=== PATIENT | male | born 1995 | race Caucasian/White ===

== ENCOUNTER 2017-07-26 13:03 | Emergency (ER) | payer SELFPAY ==
--- NOTE | 2017-07-26 14:39 | RAD ---
HISTORY: Right ankle pain COMPARISONS: None VIEWS: 3, Frontal, lateral, and oblique views of the right ankle FINDINGS: BONE DENSITY: Normal. BONES: There is an oblique minimally displaced fracture of the distal right fibula with articular extension. The tibiofibular interval is normal. JOINTS: There is no arthropathy. ALIGNMENT: There is no dislocation. SOFT TISSUES: Unremarkable. OTHER FINDINGS: None. IMPRESSION: OBLIQUE MINIMALLY DISPLACED FRACTURE OF THE DISTAL RIGHT FIBULA
--- NOTE | 2017-07-26 15:05 | UC ---
Lower Extremity/Ankle HPI - HPI Summary HPI Summary: 21 y/o male presents to the urgent care c/o RT ankle pain s/p fall on black ice on Wednesday night 07/24/2017. Pt reports he twisted his RT ankle and then fell on top of it. He ice it and stayed home w/o putting any weight on it. This morning he was lipping but pain increased. Pain is 8/10 sharp associated w/ swelling on the lateral side. Pt denies numbness or tingling over the RT foot, SOB, calf pain, chest pain, abdominal pain N/V/D - History of Current Complaint Chief Complaint: UCLowerExtremity Stated Complaint: ANKLE INJURY Time Seen by Provider: 07/26/17 14:57 Hx Obtained From: Patient Onset/Duration: Sudden Onset, Lasting Days - 2 days, Still Present, Worse Since - this morning Severity Initially: Moderate Severity Currently: Moderate Pain Intensity: 8 Pain Scale Used: 0-10 Numeric Aggravating Factor(s): Standing, Ambulation Alleviating Factor(s): Rest, Ice Able to Bear Weight: No - Risk Factors Gout Risk Factors: Negative DVT Risk Factors: Negative Septic Arthritis Risk Factor: Negative - Allergies/Home Medications Allergies/Adverse Reactions: Allergies Allergy/AdvReac Type Severity Reaction Status Date / Time No Known Allergies Allergy Verified 07/26/17 13:50 PMH/Surg Hx/FS Hx/Imm Hx Previously Healthy: Yes - Pt denies PMHX - Surgical History Surgical History: None Surgery Procedure, Year, and Place: denies - Family History Known Family History: Positive: Diabetes - Social History Occupation: Student Lives: With Family Alcohol Use: Occasionally Substance Use Type: Marijuana Smoking Status (MU): Never Smoked Tobacco - Immunization History Vaccination Up to Date: Yes Review of Systems Constitutional: Negative Skin: Negative Eyes: Negative ENT: Negative Respiratory: Negative Cardiovascular: Negative Gastrointestinal: Negative Genitourinary: Negative Motor: Negative Neurovascular: Negative Musculoskeletal: Decreased ROM - RT ankle s/p fall, Other: - RT ankle pain and swelling s/p fall Neurological: Negative Psychological: Negative Is Patient Immunocompromised?: No All Other Systems Reviewed And Are Negative: Yes Physical Exam Triage Information Reviewed: Yes Vital Signs: Initial Vital Signs Temp 98.5 F 07/26/17 13:44 Pulse 73 07/26/17 13:44 Resp 16 02/12/18 13:44 BP 118/74 07/26/17 13:44 Pulse Ox 99 07/26/17 13:44 - Additional Comments Vital Signs Reviewed: Yes General: well developed, well nourished male, sitting in the examining table w/ o any apparent distress Eyes: Positive: Conjunctiva Clear - PERRLA, EOMI, ENT: Positive: Normal ENT inspection, Hearing grossly normal, Pharynx normal, TMs normal Neck: Positive: Supple, Nontender, No Lymphadenopathy Respiratory: Positive: Chest non-tender, Lungs clear, Normal breath sounds, No respiratory distress Cardiovascular: Positive: RRR, No Murmur, Pulses Normal, Brisk Capillary Refill Abdomen Description: Positive: Nontender, No Organomegaly, Soft. Negative: CVA Tenderness (R), CVA Tenderness (L) Bowel Sounds: Positive: Present Musculoskeletal: - Ankle: Pt is unable to bear weight and ambulate w/ limping. The R ankle is without obvious asymmetry or deformity when compared to the L ankle. Decreased ROM due to pain. Moderate swelling at the lateral malleolus, with tenderness to palpation. Mild ecchymosis or bruising observed on lateral malleolus. No Tenderness to palpation over the medial malleolus , no swelling observed. Talar tilt test is negative for ligament laxity to valgus or varus stress. anterior drawer test unable to perform due to pain. . Peroneal nerve is intact with strong eversion and plantar flexion. Positive sensation over the Rt foot and Rt ankle, positive pulses, capillary refill intact Neurological Exam: Normal Psychological Exam: Normal Skin: warm and dry Lower Extremity Course/Dx - Course Course Of Treatment: 21 y/o male presents to the urgent care c/o RT ankle pain s /p fall on black ice on Wednesday night 07/24/2017. Pt reports he twisted his RT ankle and then fell on top of it. He ice it and stayed home w/o putting any weight on it. This morning he was lipping but pain increased. Pain is 8/10 sharp associated w/ swelling on the lateral side. Pt denies numbness or tingling over the RT foot, SOB, calf pain, chest pain, abdominal pain N/V/D. Hx obtained. Rt ankle X-ray ordered, Impression: Minimally displaced fracture of the RT distal fibula. I called DR Maynard Orthopedic infusion nurse and he was in the OR on an urgent case. I counsulted w/ Dr Nielson and he recomended stir-up splin and crutches to avoid weight bearing an f/u wih DR maynard in 1 day. Pt RT ankle immobilized with stir-up splint. Neurovacular intact after splinting. Pt given crutches to avoid weight bearing, Pt given Ibuprofen PO to decrease for pain at the clinic . Pt Rx Naproxen PO to decrease pain and swelling. Pt advised RICE, take Naproxen PO for pain and to f/u with Dr Maynard as soon as possible for further treatment.Pt understood and agreed and left the clinic ambulating w/ the help of crutches. - Differential Dx/Diagnosis Differential Diagnosis/HQI/PQRI: Contusion, Dislocation, Fracture (Closed), Sprain, Strain Provider Diagnoses: 1- Minimally diplaced fracture of the RT distal fibula s/p fall. 2-RT ankle pain s/p fall - Physician Notifications Discussed Patient Care With: Chuck Nielson - Dr Nielson agreed w/ Pt's plan of care. Discharge - Discharge Plan Condition: Stable Disposition: HOME Prescriptions: Naproxen [Naproxen 500 mg] 500 mg PO Q8H PRN #30 tab PRN Reason: Pain Patient Education Materials: Ankle Fracture (ED) Forms: *School Release Referrals: [facility] [place] [facility] [Outside] - 1 Week Jarad Maynard MD [Medical Doctor] - 1 Day Additional Instructions: 1-Please take medications as directed to alleviate pain and swelling. 2-Please apply ice, keep your ankle immobilized with the splint. Avoid weight bearing using the crutches 3- Please f/u with Orthopedic Dr maynard in 1-2 days for further evaluation and treatment.
[2017-07-26] MEDS ORDERED: Ibuprofen TAB* 400 MG PO ONE (15:12)
[2017-07-26 16:08] VITALS: BP 120/70
== END 2017-07-26 15:51 | disposition home or self-care (01) ==
LOC: UCEAST 13:03
DX: S82.831A Other fracture of upper and lower end of right fibula, initial encounter for closed fracture (principal); W00.0XXA Fall on same level due to ice and snow, initial encounter; Y93.9 Activity, unspecified; Y92.9 Unspecified place or not applicable; M25.571 Pain in right ankle and joints of right foot; F12.90 Cannabis use, unspecified, uncomplicated
CPT/HCPCS: 99213; A9270-GY; G0463

== ENCOUNTER → 2017-08-06 11:25 | Day surgery (SDC) | payer MEDICAID ==
[~2017-08-06 11:25] MED LIST: Acetaminophen TAB* 325 MG PO PRN; Buffered Lidocaine 0.9% SYRIN* 5 ML/SYR SYRINGE INTRADERM ONE; Bupivacaine 0.5% SDV PF* 10-30ML VIAL ONE; Dexamethasone IV* 4 MG/ML 1 ML (4 MG) ONE; HYDROmorphone INJ* 1 MG/ML CARPUJECT SYRINGE IV PRN; Ibuprofen TAB* 600 MG PO PRN; Lidocaine 2% PF * 5 ML VIAL ONE; Metoclopramide IV* 5 MG/ML 2 ML VIAL IV PRN; Midazolam* 1 MG/ML 2 ML VIAL (2 MG) ONE; Naloxone* 0.4 MG/ML 1 ML VIAL IV PRN; Ondansetron INJ* 2 MG/ML VIAL ONE; Propofol* 10 MG/ML 20 ML BTL IV PUSH ONE; ceFAZolin 2 GM in 100 MLS NS (*) BAG IVPB ONE; fentaNYL* 50 MCG/ML 2 ML VIAL (100 MCG VIAL) IV PRN; fentaNYL* 50 MCG/ML 2 ML VIAL (100 MCG VIAL) ONE
[2017-08-06 16:48] VITALS: BP 121/75
--- NOTE | 2017-08-07 17:18 | RAD ---
CPT II Codes: 6045F INDICATION: Fracture distal fibula traumatic right ankle. Fluoroscopic services provided for referring physician. 39 seconds of fluoroscopy time was used. 8 spot images demonstrates internal fixation of the fibula with a plate and screws. IMPRESSION: Internal fixation distal fibula.
--- NOTE | 2017-08-08 22:50 | OP ---
DATE OF OPERATION: 08/06/17 [facility] DATE OF : 89 SURGEON: Julio Mcintyre MD OIL FIELD PUMPER: EDMOND Bennett. A physician assistant program director was required for the length of the procedure for help with positioning, retraction, instrumentation and closure. ANESTHESIOLOGIST: Erin Adrian MD ANESTHESIA: General anesthesia, regional anesthesia with a popliteal and sciatic nerve block, and local anesthesia, 10 cc of 0.5% Marcaine without epinephrine. PRE-OP DIAGNOSIS: Right ankle lateral malleolus fracture, displaced. POST-OP DIAGNOSIS: Right ankle lateral malleolus fracture, displaced. OPERATIVE PROCEDURE: Open reduction internal fixation, right ankle lateral malleolus. 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 The patient went to [facility] and was eventually referred to my office. X-rays demonstrated that the patient had a displaced oblique or spiral fracture of the distal fibula or lateral malleolus. It was a Mills B, SER type fracture. [facility] x-rays demonstrated 2.5 mm of displacement at the fracture site. Weightbearing views showed as much as 5.5 mm of displacement. Weightbearing views were obtained in clinic. We discussed nonoperative versus operative management and decided on operative management. We discussed risks and potential complications of surgery including bleeding, infection, nerve or blood vessel injury, ankle pain, stiffness, osteoarthritis, need to remove hardware. ANTIBIOTICS: Ancef 2 g IV. IV FLUIDS: 1400 cc crystalloid. COMPLICATIONS: None. SPECIMEN: None. IMPLANTS: A 7-hole one-third tubular plate from [employer]. This had placed through a non-locking and locking 3.5 mm screws, cortical. The patient also had a non- locking 4.0 mm cancellous screw placed in the most distal hole in the plate. There was also present a 3.5 mm fully threaded cortical screw placed in lag technique fashion across the fracture site. ESTIMATED BLOOD LOSS: Minimal. TOURNIQUET TIME: 64 minutes at 300 mmHg. DESCRIPTION OF PROCEDURE: Preoperatively, the patient signed a written consent. Operative extremity was marked in preoperative holding. The patient had a popliteal sciatic nerve block performed by Dr. Adrian. The patient was brought back to the operating room, placed supine on operating room table. The patient was sedated and intubated. Cast saw was used to remove the short leg cast that has been placed in the clinic. Vacuum was used so there was a little to no fiberglass dust created. As expected, the patient only had a [id number] soft tissue swelling and a easy wrinkling of the skin. No skin defect. A right proximal thigh tourniquet was placed. Bone foam was placed under the right lower extremity and blanket bumps were placed under the right hemipelvis. The right lower extremity was prepped with chlorhexidine scrub of the foot and ankle followed by ChloraPrep. Draping. Surgical time-out. Esmarch was applied and tourniquet was elevated to 300 mmHg. Skin incision was made for a lateral approach to the ankle. I continued dissection down to bone. Fracture was identified. Fracture was opened. Irrigation. Some fibrous tissue debrided with rongeur and curette. Bone clamps used to reduce the fracture. I then placed a lag screw. I placed a 3.5 mm fully threaded cortical screw from posterior to anterior across the fracture site using lag technique. Removed bone clamps. It shows a 7-hole plate. I picked appropriate location to place on bone. I contoured the plate appropriately with several bends and some internal rotation added to it. I placed a non-locking screw distally and a non-locking screw proximally. I then obtained x-ray imaging, which showed excellent reduction of the bone at the fracture site and excellent placement of the hardware, specifically the plate. I then filled the plate, proximally and distally. I changed the length of one of the proximal screws and converted it from nonlocking to locking because the purchase was not excellent. The purchase of the remaining nonlocking screws were excellent. I changed the length of my lag screw from 22 mm to 18 mm. I performed an external rotation stress test. It showed no clear space opening. I then performed a cotton test. This likewise showed no clear space opening. I therefore decided a syndesmotic screw was not required. I finished up with my screws through the plate. I took final images, AP mortise and lateral, which showed excellent symmetric mortis, excellent placement of hardware and anatomic reduction at the fracture site. Irrigation. Closure of some deep fascia with Vicryl 2-0 suture, placing figure- of- eight stitches. The plate was entirely covered by this deep fascia. Irrigation. Closure of the subcutaneous tissue with buried simple stitches using Vicryl 3-0 suture. Then closure of the skin with jordi. Xeroform, 4x4 , sterile Webril. Tourniquet was deflated. Non-sterile Webril was then used. We then placed a splint, first a posterior splint and then a sugar tong medial and lateral splint and overwrapped it with an Fabian bandage. The patient was awakened and extubated. DISPOSITION: The patient will be nonweightbearing, right lower extremity using crutches. He will take Keflex for 7 days to prevent an infection and Percocet as needed for pain control. The patient will follow up with me in clinic 10 to 14 days postoperatively for x-rays, wound check, removal of sutures, and placements in either a walking boot or a cast. The patient is also being placed on aspirin for DVT prophylaxis. [id number]/[facility] #: [id number] KIMMY
== END | disposition home or self-care (01) ==
LOC: OR 11:25
PROVIDERS: ATTEND Orthopaedic Surgery
DX: S82.61XA Displaced fracture of lateral malleolus of right fibula, initial encounter for closed fracture (principal); W01.0XXA Fall on same level from slipping, tripping and stumbling without subsequent striking against object, initial encounter; Y92.9 Unspecified place or not applicable
CPT/HCPCS: 76001; C1713; C1776; J1100; J2250; J2405; J2704; J3010